=== PATIENT | male | born 1965 | race Caucasian/White ===

== ENCOUNTER 2017-09-25 16:03 | Emergency (ER) | payer BC ==
[~2017-09-25] VITALS: Ht 188 cm; Wt 80.0 kg
[2017-09-25] MEDS ORDERED: CIPROFLOXACN500 MG PO (17:07)
[2017-09-25 17:21] VITALS: BP 135/81
== END 2017-09-25 17:21 | disposition home or self-care (01) | DRG 914 ==
LOC: ED 16:03
PROC: 0HCDXZZ Extirpation of Matter from Right Lower Arm Skin, External Approach (ICD-10-PCS; principal; 2017-09-25)
DX: S51.841A Puncture wound with foreign body of right forearm, initial encounter (principal); W45.8XXA Other foreign body or object entering through skin, initial encounter; Y93.89 Activity, other specified; Y92.89 Other specified places as the place of occurrence of the external cause